=== PATIENT | male | born 2000 | race Hispanic/Latino ===

== ENCOUNTER 2023-02-17 18:17 | Emergency (ER) | payer OTHER ==
--- NOTE | 2023-02-17 18:41 | EDPHYS ---
Physician Documentation [facility] Name: Neil Cheng Age: 23 yrs Sex: Male : 2000 Arrival Date: 02/17/2023 Time: 18:17 Bed Treatment Private MD: ED Physician Low Vick HPI: 02/17 18:37 This 23 yrs old Male presents to ER via Unassigned with complaints of Lip sp3 laceration. 18:37 23-year-old male with no significant past medical history presents with chief complaint sp3 lower lip laceration that occurred approximate 9 PM last night. Patient was supposed to come to the ED sooner but due to logistical reasons was not able to come. It has now been 22 hours since initial laceration. He is outside of the window for any repair. Denies any significant blood loss, secondary injuries, tongue laceration, dental injury, other facial pain, or any other signs or symptoms on ROS at this time. Tetanus is not up-to-date but patient does not desire any tetanus update. ROS otherwise negative.. Historical: - Allergies: 18:55 No Known Allergies; eh3 - Immunization history:: Adult Immunizations not up to date. - Social history:: Smoking status: Patient/guardian denies using tobacco, but has a distant history of tobacco abuse. ROS: 18:38 Constitutional: Negative for fever, chills, and weight loss, Eyes: Negative for injury, sp3 pain, redness, and discharge, Neck: Negative for injury, pain, and swelling, Cardiovascular: Negative for chest pain, palpitations, and edema, Respiratory: Negative for shortness of breath, cough, wheezing, and pleuritic chest pain, Abdomen/GI: Negative for abdominal pain, nausea, vomiting, diarrhea, and constipation, Back: Negative for injury and pain, MS/Extremity: Negative for injury and deformity, Skin: Negative for injury, rash, and discoloration, Neuro: Negative for headache, weakness, numbness, tingling, and seizure, Psych: Negative for depression, anxiety, suicide ideation, homicidal ideation, and hallucinations, Allergy/Immunology: Negative for hives, rash, and allergies, Endocrine: Negative for neck swelling, polydipsia, polyuria, polyphagia, and marked weight changes. 18:38 All other systems are negative. Exam: 18:39 Constitutional: This is a well developed, well nourished patient who is awake, alert, sp3 and in no acute distress. Eyes: Pupils equal round and reactive to light, extra-ocular motions intact. Lids and lashes normal. Conjunctiva and sclera are non-icteric and not injected. Cornea within normal limits. Periorbital areas with no swelling, redness, or edema. ENT: Nares patent. No nasal discharge, no septal abnormalities noted. External auditory canals are clear. Oropharynx with no redness, swelling, or masses, exudates, or evidence of obstruction, uvula midline. Mucous membranes moist. Neck: Trachea midline, no thyromegaly or masses palpated, and no cervical lymphadenopathy. Supple, full range of motion without nuchal rigidity, or vertebral point tenderness. No Meningismus. Chest/axilla: Normal chest wall appearance and motion. Nontender with no deformity. No lesions are appreciated. Cardiovascular: Regular rate and rhythm with a normal S1 and S2. No gallops, murmurs, or rubs. Normal PMI, no JVD. No pulse deficits. 18:39 Head/face: 7 mm laceration on the lower lip that does not cross the vermilion border. Wound is not open or gaping and is approximated itself. There is no discharge or draining purulence. Patient is able to maintain airway and there were no other secondary oral injuries.. Vital Signs: 18:37 BP 136 / 89; Pulse 85; Resp 16; Temp 98.7(IR); Pulse Ox 99% on R/A; Weight 79.38 kg; eh3 Height 5 ft. 7 in. ; 18:37 Body Mass Index 27.41 (79.38 kg, 170.18 cm) 3 MDM: 18:40 Data reviewed: vital signs, nurses notes. ED course: 23-year-old male with with lower sp3 lip laceration to heal via secondary intention since he is outside of the laceration repair window. Patient declines tetanus update. Will discharge home on oral antibiotics and instructions for soft diet.. 18:41 Patient medically screened. sp3 Administered Medications: No medications were administered Disposition Summary: 02/17/23 18:41 Discharge Ordered Location: Home sp3 Condition: Stable sp3 Diagnosis - Lower lip laceration to heal by secondary intention sp3 Followup: sp3 - With: Private Physician - When: As needed - Reason: Continuance of care Discharge Instructions: - Discharge Summary Sheet sp3 - Mouth Laceration sp3 Forms: - Medication Reconciliation Form sp3 - Thank You Letter sp3 - Antibiotic Education sp3 - Prescription Opioid Use sp3 Prescriptions: - Augmentin 875-125 mg Oral Tablet - take 1 tablet by ORAL route every 12 hours for 5 days; 10 tablet; Refills: 0, sp3 Product Selection Permitted Signatures: Low Vick MD MD sp3 Elif Velasco RN RN eh3
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
== END 2023-02-17 18:57 | disposition home or self-care (01) ==
LOC: ER 18:17
DX: S01.511A Laceration without foreign body of lip, initial encounter (principal)
CPT/HCPCS: 99283